=== PATIENT | male | born 1960 | race Caucasian/White ===

== ENCOUNTER → 2020-01-20 | Outpatient (CLI) | payer OTHER ==
--- NOTE | 2020-01-20 17:14 | US ---
EXAM DESCRIPTION: Venous,Upper Extremity RT: ULTRASOUND. CLINICAL HISTORY: unspecified edema and tingling x 4 days COMPARISON: None Available. TECHNIQUE: Two -dimensional and doppler sonographic evaluation of the deep venous system of the right upper extremity. FINDINGS: Doppler evaluation shows normal color flow and normal phasicity and augmentation of the right subclavian, jugular, axillary, basilic, brachial, radial vein and ulnar vein.. Cephalic vein was not visualized. The right upper extremity deep veins showed normal occlusion with transducer pressure. Two-dimensional survey showed no echogenic thrombus within these veins. IMPRESSION: Duplex ultrasound evaluation of the right upper extremity deep venous system showing no thrombosis. . Electronically signed by: Chaparro Kaplan MD 01/20/2020 5:12 PM CDT
== END ==
LOC: US 16:15
PROVIDERS: ATTEND Family Medicine
DX: R60.9 Edema, unspecified (principal)